=== PATIENT | male | born 1955 | race Caucasian/White ===

== ENCOUNTER 2018-05-06 03:13 | Emergency (ER) | payer MEDICAID ==
[~2018-05-06] VITALS: Ht 188 cm; Wt 129.5 kg
[2018-05-06 03:16] VITALS: BP 187/109
== END 2018-05-06 04:03 | disposition home or self-care (01) ==
LOC: ER 03:14
DX: T18.8XXA Foreign body in other parts of alimentary tract, initial encounter (principal); I10 Essential (primary) hypertension; G89.29 Other chronic pain; Z98.890 Other specified postprocedural states; Y92.9 Unspecified place or not applicable
CPT/HCPCS: 99281